=== PATIENT | female | born 1960 | race Caucasian/White ===

== ENCOUNTER 2019-06-17 20:08 | Inpatient (IN) | payer BC ==
--- NOTE | 2019-06-17 20:30 | ED ---
Dizziness - HPI Summary HPI Summary: This pt is a 58 y/o female presenting to [facility] c/o unsteady gait today. Pt reports she was doing her walk at work around 1900 today when she felt "off" and "weird." She describes feeling off balanced and like leaning towards the left. Denies room spinning sensation. Pt also states she felt like her legs might give out and if she wasn't careful she felt like she would fall over. Pt reports she has never felt this in the past. Denies any associated pain. Denies vomiting, diarrhea, visual changes, difficulty speaking, ear pain. Although, she notes she always has ringing in her ears, unchanged today. Denies any recent cold symptoms. Denies SOB. Pt states she had a stressful week. Pt is on tramadol for arthritis. Denies hx of HTN and states her blood pressure is around 120/70 during her visits to her PCP's. NKDA. Denies tobacco or drug use. She reports she seldom drinks alcohol. Medications reviewed. Allergies noted. - History Of Current Complaint Chief Complaint: EDDizziness Stated Complaint: DIZZY PER PT Time Seen by Provider: 06/17/19 20:23 Hx Obtained From: Patient Onset/Duration: Still Present Timing: Constant Severity Currently: Moderate Character: Unable To Describe Aggravating Factor(s): Nothing Alleviating Factor(s): Nothing Associated Signs And Symptoms: Positive: Unsteady Gait. Negative: Vomiting, Diarrhea, SOB, Visual Changes, Fever, Inability to Walk, Slurred Speech - Allergies/Home Medications Allergies/Adverse Reactions: Allergies Allergy/AdvReac Type Severity Reaction Status Date / Time No Known Allergies Allergy Verified 06/17/19 20:12 Home Medications: Home Medications Albuterol inh POWDER (NF) [Proair Respiclick] 1 - 2 puff INH Q4HR PRN 06/17/19 [ History Confirmed 06/17/19] Meloxicam(NF) [Mobic(NF)] 7.5 mg PO BID WITH MEALS 06/17/19 [History Confirmed 06/17/19] traMADol TAB* [Ultram*] 50 mg PO 1200 PRN 06/17/19 [History Confirmed 06/17/19] traMADol TAB* [Ultram*] 100 mg PO QAM 06/17/19 [History Confirmed 06/17/19] PMH/Surg Hx/FS Hx/Imm Hx Respiratory History: Reports: Hx Asthma - RESCUE INHALER - NOT USED IN 2 YEARS Musculoskeletal History: Reports: Hx Arthritis - BILATERAL HIPS, KNEES,, Hx Tendonitis - RIGHT ELBOW Sensory History: Reports: Hx Contacts or Glasses - GLASSES Denies: Hx Hearing Aid Opthamlomology History: Reports: Hx Contacts or Glasses - GLASSES - Cancer History Hx Chemotherapy: No Hx Radiation Therapy: No - Surgical History Surgical History: Yes Surgery Procedure, Year, and Place: 1983 AND 1986 CSECTION X 2, [place], [place], & [place], [facility]. 1995 HYSTERECTOMY (UTERUS AND CERVIX), [place], [place]. 2014 LAPAROSCOPIC CHOLECYSTECTOMY, [facility] Hx Anesthesia Reactions: No Infectious Disease History: No Infectious Disease History: Denies: Traveled Outside the [place] in Last 30 Days - Family History Family History: Prostate CA. Lupus. - Social History Alcohol Use: Rare Substance Use Type: Reports: None Smoking Status (MU): Never Smoked Tobacco Review of Systems Negative: Fever Negative: Other - NEGATIVE: visual changes Negative: Ear Ache, Other - NEGATIVE: recent cold symptoms Negative: Shortness Of Breath Negative: Vomiting, Diarrhea Neurological: Other - NEGATIVE: difficulty with speech. POSITIVE: unsteady gait , off balanced, leaning to the left. All Other Systems Reviewed And Are Negative: Yes Physical Exam - Summary Physical Exam Summary: Constitutional: Well-developed, Well-nourished, Alert. (-) Distressed Skin: Warm, Dry HENT: Normocephalic; Atraumatic Eyes: Conjunctiva normal Neck: Musculoskeletal ROM normal neck. (-) JVD, (-) Stridor, (-) Tracheal deviation Cardio: Rhythm regular, rate normal, Heart sounds normal; Intact distal pulses. Radial pulses are 2+ and symmetric. (-) Murmur Pulmonary/Chest wall: Effort normal. (-) Respiratory distress, (-) Wheezes, (-) Rales Abd: Soft. (-) Tenderness, (-) Distension, (-) Guarding, (-) Rebound Musculoskeletal: (-) Edema Lymph: (-) Cervical adenopathy Neuro: Alert, Oriented x3, Strength normal, Cranial nerves II-XII are grossly intact. (-) Dysmetria, (-) Nystagmus, (-) Ataxia by finger to nose testing, (-) Sensory deficit. Psych: Mood and affect Normal Triage Information Reviewed: Yes Vital Signs On Initial Exam: Initial Vitals Temp Pulse Resp BP Pulse Ox 97.4 F 84 18 130/87 100 06/17/19 20:10 06/17/19 20:10 06/17/19 20:10 06/17/19 20:10 06/17/19 20:10 Vital Signs Reviewed: Yes - Jace Coma Scale Best Eye Response: 4 - Spontaneous Best Motor Response: 6 - Obeys Commands Best Verbal Response: 5 - Oriented Coma Scale Total: 15 Procedures - Sedation Patient Received Moderate/Deep Sedation with Procedure: No Diagnostics - Vital Signs Vital Signs Temp Pulse Resp BP Pulse Ox 06/17/19 20:10 97.4 F 84 18 130/87 100 - Laboratory Result Diagrams: 06/17/19 20:38 06/17/19 20:38 Lab Statement: Any lab studies that have been ordered have been reviewed, and results considered in the medical decision making process. - Radiology Chest XR Radiology Interpretation Completed By: ED Physician Summary of Radiographic Findings: No acute process. - CT Brain CT CT Interpretation Completed By: Radiologist Summary of CT Findings: IMPRESSION: No acute intracranial abnormality. Dr. Gibbs has reviewed this report. Head CTA CT Interpretation Completed By: Radiologist Summary of CT Findings: IMPRESSION: No hemodynamically significant or large vessel occlusion. Dr. Gibbs has reviewed this report. Neck CTA CT Interpretation Completed By: Radiologist Summary of CT Findings: IMPRESSION: No stenosis (0%) or dissection. Dr. Gibbs has reviewed this report. - EKG 20:13 Cardiac Rate: NL - at 68 bpm EKG Rhythm: Sinus Rhythm EKG Comparison: No Significant Change - Unchanged from EKG on 11/25/13. Summary of EKG Findings: EKG at 20:13 shows normal sinus rhythm at rate of [address] depressions in leads V2-V4. T wave inversion in lead V2. Unchanged from EKG on 11/25/13. National Institutes Of Health - NIH Scale Level of Consciousness: Alert/Keenly Responsive Ask Patient the Month and His/Her Age: Both Correct Ask Pt to Open/Close Eyes and Professor Of German/Release Non-Paretic Hand: Both Correctly Best Gaze (Only Horizontal Eye Movement): Normal Visual Field Testing: No Visual Loss Facial Paresis-Pt to Smile & Close Eyes or Grimace Symmetry: Normal/Symmetrical Motor Function - Right Arm: No Drift-Holds 10 Seconds Motor Function - Left Arm: No Drift-Holds 10 Seconds Motor Function - Right Leg: No Drift-Holds 10 Seconds Motor Function - Left Leg: No Drift-Holds 10 Seconds Limb Ataxia-Must be out of Proportion to Weakness Present: Absent Sensory (Use Pinprick to Test Arms/Legs/Trunk/Face): Normal Best Language (Describe Picture, Name Items): No Aphasia Dysarthria (Read Several Words): Normal Extinction and Inattention: No Abnormality Total Score: 0 Re-Evaluation - Re-Evaluation First Eval Re-Evaluation Time: 20:58 Change: Improved Comment: Pt's symptoms are near gone now. Dizzy Course/Dx - Course Course Of Treatment: Patient is here with vertigo that started at 7 PM. Patient had an NIH stroke scale 0 potter arrival but did have difficulty ambulating with a gait ataxia. A pam mas was called and patient was taken emergently to the CT scanner where a CT brain and CTA head/neck was performed. Patient had no evidence of intracranial hemorrhage. Patient had a negative CTA for any clot. By the time patient returned from CT scanner, patient was back to her baseline. Neurology at [facility] was called and the recommended admission for TIA. Code palma called at 20:33. Brain CT ordered at 20:33. Pt taken to CT at 20:34. Radiologist reports brain CT results at 20:53 . - Diagnoses Provider Diagnoses: TIA (transient ischemic attack) During the Visit The Following Alert/Code Occurred: Code Dong - at 20:33 - Provider Notifications Discussed Care Of Patient With: Dr. Godinez Time Discussed With Above Provider: 21:01 Instructed by Provider To: Other - Dr. Godinez, neurologist from [facility], says to admit patient overnight for TIA work up and if there is basilar artery clot recommend TPA even if patient is asymptomatic. [21:19] Discussed with Dr. Wong, hospitalist, who accepted the pt for admission. - Critical Care Time Critical Care Time: 30-74 min - 35 minutes Discharge ED - Sign-Out/Discharge Documenting (check all that apply): Patient Departure - Admit to [facility] - Discharge Plan Condition: Stable Disposition: ADMITTED TO [facility] Referrals: Sujata Dumont MD [Primary Care Provider] - - Billing Disposition and Condition Condition: STABLE Disposition: Admitted to [facility] - Attestation Statements Document Initiated by Pavithraibandree: Yes Documenting Scribe: Ifrah Jerry Provider For Whom Scribandree is Documenting (Include Credential): Vitor Gibbs MD Scribe Attestation: IIfrah, scribed for Vitor Gibbs MD on 06/17/19 at 2133. Scribe Documentation Reviewed: Yes Provider Attestation: The documentation as recorded by the Ifrah hall accurately reflects the service I personally performed and the decisions made by , Vitor Gibbs MD Status of Scribe Document: Viewed
[2019-06-17] MEDS ORDERED: NS 0.9% 1000 ML** 1,000 ML IV ONE (20:33)
[2019-06-17] MEDS ORDERED: Iodixanol* (CONTRAST) 320 MG/ML 100 ML SDV IV ONE (20:50)
[2019-06-17 20:51] LABS: ABS Basophils 0.1 10^3/ul (0-0.2); ABS Eosinophils 0.1 10^3/ul (0-0.6); ABS Lymphocytes 2.5 10^3/ul (1.0-4.8); ABS Monocytes 0.5 10^3/ul (0-0.8); ABS Neutrophils 4.8 10^3/ul (1.5-7.7); Eosinophil % 1.3 %; Hematocrit 37 % (35-47); Hemoglobin 12.7 g/dL (12.0-16.0); Lymphocyte % 31.3 %; Mean Corpuscular HGB Conc 34 g/dL (31-36); Mean Corpuscular Hemoglobin 31 pg (27-31); Mean Corpuscular Volume 91 fL (80-97); Mean Platelet Volume 8.3 fL (7.4-10.4); Platelet Count 403 10^3/uL (150-450); Red Blood Count 4.07 10^6 /uL (3.70-4.87); Red Cell Distribution Width 13 % (10-15)
[2019-06-17 21:08] LABS: Activated Partial Thrombo Time 33.8 seconds (26.0-38.0); INR 1.06 (0.82-1.09)
[2019-06-17 21:17] LABS: Albumin 4.4 g/dL (3.2-5.2); Albumin/Globulin Ratio 1.7 (1-3); BUN/Creatinine Ratio 21.2 (8-20); Calcium 9.5 mg/dL (8.6-10.3); EGFR African American 57.3 (>60); EGFR Non-African American 47.4 (>60); Globulin 2.6 g/dL (2-4); HDL Cholesterol 41.6 mg/dL; Potassium 3.5 mmol/L (3.5-5.0); Total Bilirubin 0.2 mg/dL (0.2-1.0); Troponin I 0.01 ng/mL (<0.04)
--- OUTSIDE RECORDS SUMMARY | 2019-06-17 21:33 | XMS REPORT | Continuity of Care Document ---
:1960 External Reference #:[id number] Author Name Emmanuel Merritt N.P. 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 Onset: 2011 Arthralgia of the lower leg Sujata Dumont M.D. Onset: 02/10/2012 Asthma Leah Page FNP Onset: 05/16/2014 Low back pain Sujata Dumont M.D. Onset: 02/10/2012 Osteoarthritis Sujata Dumont M.D. Onset: 02/10/2012 Non-organic sleep disorder Sujata Dumont M.D. Onset: 02/10/2012 Anxiety state Sujata Dumont M.D. Onset: 02/10/2012 Malaise and fatigue Sujata Dumont M.D. Onset: 07/23/2012 Allergic rhinitis Sujata Dumont M.D. Onset: 07/23/2012 Mixed hyperlipidemia Sujata Dumont M.D. Onset: 11/16/2012 Myopia Sujata Dumont M.D. Onset: 12/16/2013 Persistent hematuria Leah Page FNP Onset: 03/07/2014 Non-alcoholic fatty liver Leah Page FNP Onset: 03/07/2014 Atopic dermatitis Sujata Dumont M.D. Onset: 11/01/2014 Asthma without status asthmaticus Sujata Dumont M.D. 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 Tablets Meloxicam take one tablet 60tabs M15.9 Sujata Dumont, 05/28/2019 7.5mg Tablets by mouth twice a M.D. day-take with food Proair Respiclick inhale 2 puffs by 1units J45.909 Sujata Dumont, 2018 mouth every 4 M.D. 108(90Base) mcg/Act hours if needed Aerosol for shortness of breath or wheezing Vitamin D3 Maximum tab two by mouth OTC E55.9 Sujata Dumont, 11/01/2015 Strength every day M.D. 2000Unit Capsules Tramadol HCL 1 tab by mouth 90tabs M25.562 Sujata Dumont, 12/06/2011 50mg three times a day M.D. Tablets as needed for pain M15.9 M54.5 History Medications Cephalexin 1 tabs by mouth 30tabs L03.211 Sujata Dumont, 02/18/2019 - 500mg three times a M.D. 02/21/2019 Tablets day Medications Administered in Office Medication SIG Qnty Indications Ordering Provider Date Solu-Medrol 125MG Sujata Dumont M.D. 02/04/2014 Injection Rocephin 250 Sujata Dumont M.D. 02/04/2014 Injection Immunizations CPT Code Status Date Vaccine Lot # [id number] Refused 06/15/2014 Flu Vaccine Vital Signs Date Vital Result Comment 05/28/2019 9:06am BP Systolic 125 mmHg BP Diastolic 62 mmHg Height 56 inches 4'8" Weight 151.00 lb BMI (Body Mass Index) 33.8 kg/m2 Heart Rate 61 /min Respiratory Rate 16 /min 04/28/2019 8:57am BP Systolic 118 mmHg BP Diastolic 62 mmHg Height 56 inches 4'8" Weight 148.00 lb BMI (Body Mass Index) 33.2 kg/m2 Heart Rate 69 /min Respiratory Rate 16 /min Results Test Date Facility Test Result H/L Range Note CBC With Diff 01/21/2019 [facility] WBC 4.8 10*3/uL (4.1-11.0) [address] (607)- - RBC 4.14 10*6/uL (4.00-5.40) HGB 13.1 g/dL (12.0-16.0) HCT 38.3 % (36.0-47.0) MCV 92.6 fL (80.0-95.0) MCH 31.6 pg (27.0-32.0) MCHC 34.2 g/dL (32.0-36.0) RDW 13.1 % (10.5-14.5) PLT 367 10*3/uL (150-450) MPV 8.8 fL (7.1-10.7) Neut % 50.6 % (35.0-75.0) Lymph % 37.4 % (16.0-52.0) [place] % 9.0 % High (0.0-8.0) Eos % 2.6 % (0.0-5.0) Baso % 0.4 % (0.0-4.0) Neut # 2.4 10*3/uL (1.8-7.7) Lymph # 1.8 10*3/uL (1.2-4.8) [place] # 0.4 10*3/uL (0.0-0.8) Eos # 0.1 10*3/uL (0.0-0.5) Baso # 0.0 10*3/uL (0.0-0.2) CMP 01/21/2019 [facility] Sodium 142 mmol/L (136-145) [address] (607)- - Potassium 4.6 mmol/L (3.6-5.2) Chloride 109 mmol/L High (100-108) Co2 27 mmol/L (22-31) Anion Gap 6 mmol/L Low (7-16) Urea Nitrogen 15 mg/dL (7-24) Creatinine 0.79 mg/dL (0.60-1.00) BUN/Creat Ratio 19.0 RATIO (10.0-20.0) Glucose 90 mg/dL (70-99) Calcium 8.4 mg/dL (8.4-10.2) Total Protein 7.0 g/dL (6.4-8.2) Albumin 4.0 g/dL (3.5-4.6) Globulin 3.0 g/dL (2.7-4.3) Alb/Glob Ratio 1.3 RATIO Alkaline Phosphatase 57 U/L (45-117) Bilirubin,Total 0.3 mg/dL (0.0-1.0) Ast (Sgot) 14 U/L (11-39) Alt (SGPT) 16 U/L (12-78) GFR >60 ml/min/1.73m2 (>59) GFR ( Amer) >60 ml/min/1.73m2 (>59) GFR Interpretation <SEE NOTE> 1 Lipid Extended Panel 01/21/2019 [facility] Appearance CLEAR (Clear) [address] (578)- - Cholesterol @ 192 mg/dL (0-200) Triglyceride @ 103 mg/dL (30-200) HDL Cholesterol @ 47 mg/dL (>40) 2 Chol/HDL Ratio 4.1 RATIO 3 Direct LDL @ 125 mg/dL (<130) 4 VLDL (Calc) 20 mg/dL (0-30) Laboratory 01/21/2019 [facility] TSH,Ultrasensitive @ 2.960 (0.360- 4.170) test finding [address] mIU/L (601)- - Hemoglobin A1c 01/21/2019 [facility] Hemoglobin A1c @ 5.4 % (4.0-6.0) 5 [address] (998)- - Est Average Glucose 108 mg/dL Laboratory test 01/21/2019 [facility] 25 Hydroxy Vit 67 ng/mL (31-100 ) 6 finding [address] D @ (828)- - 1 NORMAL KIDNEY FUNCTION OR MILD DISEASE - GFR >OR= 60 CHRONIC KIDNEY DISEASE - GFR 15 - 59 RENAL FAILURE - GFR <15 Est. GFR calculation based on the MDRD study equation, which assumes a steady state for creatinine. Est. GFR should not be used for medication dosing. 2 PER NCEP ATP III GUIDELINES: RESULTS LOWER THAN 40 MG/DL ARE SUGGESTIVE OF INCREASED RISK FOR CORONARY ARTERY DISEASE. RESULTS > OR = TO 60 MG/DL ARE CONSIDERED A NEGATIVE RISK FACTOR. 3 INTERPRETATION OF CHOL-HDL RATIO CHD RISK FEMALE MALE VERY HIGH >8.3 >14.3 HIGH 5.6- 8.3 6.7- 14.3 AVERAGE 3.7- 5.6 4.0- 6.7 BELOW AVERAGE 2.5- 3.7 2.7- 4.0 PROTECTED <2.5 <2.7 4 PER NCEP ATP III GUIDELINES: OPTIMAL < 100 NEAR OPTIMAL 100 - 129 BORDERLINE HIGH 130 - 159 HIGH 160 - 189 VERY HIGH > 189 5 Performed using Siemens [place] immunoassay. Care must be taken when interpreting HbA1c results in patients with a hemoglobin variant or decreased erythrocyte lifespan. Values 5.7 - 6.4% suggest prediabetes. Values >=6.5% are diagnostic for diabetes. REFERENCE: DIABETES CARE 2018: 41(S13-S27). 6 A REVIEW OF THE LITERATURE SUGGESTS THE FOLLOWING RANGES FOR THE CLASSIFICATION OF 25-OH VITAMIN D STATUS: VITAMIN D STATUS 25-OH VITAMIN D DEFICIENCY <20 NG/ML INSUFFICIENCY 20-30 NG/ML SUFFICIENCY 31 - 100 NG/ML TOXICITY > 100 NG/ML A PEDIATRIC REFERENCE RANGE HAS NOT BEEN ESTABLISHED USING THIS METHOD. Procedures Date Code Description Status 08/25/2014 [id number] Mammogram Completed Medical Devices Description No Information Available Encounters Type Date Location Provider Dx Diagnosis Office Visit 05/28/2019 [facility] Emmanuel Merritt, E78.2 Mixed hyperlipidemia 9:30a N.P. I10 Essential (primary) hypertension M15.9 Polyosteoarthritis, unspecified R73.01 Impaired fasting glucose E55.9 Vitamin D deficiency, unspecified G56.00 Carpal tunnel syndrome, unspecified upper limb G47.00 Insomnia, unspecified F41.9 Anxiety disorder, unspecified M25.521 Pain in right elbow M25.562 Pain in left knee M79.606 Pain in leg, unspecified A69.20 Lyme disease, unspecified M25.542 Pain in joints of left hand R53.83 Other fatigue R51 Headache M25.571 Pain in right ankle and joints of right foot Z28.21 Immunization not carried out because of patient refusal J45.909 Unspecified asthma, uncomplicated M25.559 Pain in unspecified hip Office Visit 04/28/2019 9:15a [facility] Emmanuel Merritt E78.2 Mixed hyperlipidemia N.P. I10 Essential (primary) hypertension M15.9 Polyosteoarthritis, unspecified R73.01 Impaired fasting glucose E55.9 Vitamin D deficiency, unspecified G56.00 Carpal tunnel syndrome, unspecified upper limb G47.00 Insomnia, unspecified F41.9 Anxiety disorder, unspecified M25.521 Pain in right elbow M25.562 Pain in left knee M79.606 Pain in leg, unspecified A69.20 Lyme disease, unspecified M25.542 Pain in joints of left hand R53.83 Other fatigue R51 Headache M25.571 Pain in right ankle and joints of right foot Office Visit 03/23/2019 9:30a [facility] Sujata Dumont E78.2 Mixed hyperlipidemia Leonardo Witt I10 Essential (primary) hypertension M15.9 Polyosteoarthritis, unspecified R73.01 Impaired fasting glucose E55.9 Vitamin D deficiency, unspecified G56.00 Carpal tunnel syndrome, unspecified upper limb G47.00 Insomnia, unspecified F41.9 Anxiety disorder, unspecified M25.521 Pain in right elbow M25.562 Pain in left knee M79.606 Pain in leg, unspecified A69.20 Lyme disease, unspecified M25.542 Pain in joints of left hand R53.83 Other fatigue R51 Headache M25.571 Pain in right ankle and joints of right foot H92.02 Otalgia, left ear L03.211 Cellulitis of face Office Visit 02/18/2019 9:30a [facility] Sujata Dumont E78.2 Mixed hyperlipidemia Leonardo Witt I10 Essential (primary) hypertension M15.9 Polyosteoarthritis, unspecified R73.01 Impaired fasting glucose E55.9 Vitamin D deficiency, unspecified G56.00 Carpal tunnel syndrome, unspecified upper limb G47.00 Insomnia, unspecified F41.9 Anxiety disorder, unspecified M25.521 Pain in right elbow M25.562 Pain in left knee M79.606 Pain in leg, unspecified A69.20 Lyme disease, unspecified M25.542 Pain in joints of left hand R53.83 Other fatigue R51 Headache M25.571 Pain in right ankle and joints of right foot H92.02 Otalgia, left ear L03.211 Cellulitis of face Office Visit 01/21/2019 8:45a [facility] Sujata Dumont E78.2 Mixed hyperlipidemia Leonardo Witt I10 Essential (primary) hypertension M15.9 Polyosteoarthritis, unspecified R73.01 Impaired fasting glucose E55.9 Vitamin D deficiency, unspecified G56.00 Carpal tunnel syndrome, unspecified upper limb G47.00 Insomnia, unspecified F41.9 Anxiety disorder, unspecified M25.521 Pain in right elbow M25.562 Pain in left knee M79.606 Pain in leg, unspecified A69.20 Lyme disease, unspecified M25.542 Pain in joints of left hand R53.83 Other fatigue R51 Headache M25.571 Pain in right ankle and joints of right foot H92.02 Otalgia, left ear Office Visit 12/22/2018 9:15a [facility] Sujata Dumont E78.2 Mixed hyperlipidemia Leonardo Witt I10 Essential (primary) hypertension M15.9 Polyosteoarthritis, unspecified R73.01 Impaired fasting glucose E55.9 Vitamin D deficiency, unspecified G56.00 Carpal tunnel syndrome, unspecified upper limb G47.00 Insomnia, unspecified F41.9 Anxiety disorder, unspecified M25.521 Pain in right elbow M25.562 Pain in left knee M79.606 Pain in leg, unspecified A69.20 Lyme disease, unspecified M25.542 Pain in joints of left hand R53.83 Other fatigue R51 Headache M25.571 Pain in right ankle and joints of right foot H92.02 Otalgia, left ear Assessments Date Code Description Provider 05/28/2019 E78.2 Mixed hyperlipidemia Emmanuel Merritt, N.P. 05/28/2019 I10 Essential (primary) hypertension Emmanuel Merritt, N.P. 05/28/2019 M15.9 Polyosteoarthritis, unspecified Emmanuel Merritt, N.P. 05/28/2019 R73.01 Impaired fasting glucose Emmanuel Merritt N.P. 05/28/2019 E55.9 Vitamin D deficiency, unspecified Emmanuel Merritt N.P. 05/28/2019 G56.00 Carpal tunnel syndrome, unspecified upper Emmanuel Merritt N.P. limb 05/28/2019 G47.00 Insomnia, unspecified Emmanuel Merritt N.P. 05/28/2019 F41.9 Anxiety disorder, unspecified Emmanuel Merritt N.P. 05/28/2019 M25.521 Pain in right elbow Emmanuel Merritt N.P. 05/28/2019 M25.562 Pain in left knee Emmanuel Merritt N.P. 05/28/2019 M79.606 Pain in leg, unspecified Emmanuel Merritt, N.P. 05/28/2019 A69.20 Lyme disease, unspecified Emmanuel Merritt N.P. 05/28/2019 M25.542 Pain in joints of left hand Emmanuel Merritt N.P. 05/28/2019 R53.83 Other fatigue Emmanuel Merritt N.P. 05/28/2019 R51 Headache Emmanuel Merritt N.P. 05/28/2019 M25.571 Pain in right ankle and joints of right foot Emmanuel Merritt N.P. 05/28/2019 Z28.21 Immunization not carried out because of Emmanuel Merritt, N.PKan patient refusal 05/28/2019 J45.909 Unspecified asthma, uncomplicated Emmanuel Merritt N.P. 05/28/2019 M25.559 Pain in unspecified hip Emmanuel Merritt N.P. 04/28/2019 E78.2 Mixed hyperlipidemia Emmanuel Merritt, N.P. 04/28/2019 I10 Essential (primary) hypertension Emmanuel Merritt, N.P. 04/28/2019 M15.9 Polyosteoarthritis, unspecified Emmanuel Merritt, N.P. 04/28/2019 R73.01 Impaired fasting glucose Emmanuel Merritt, N.P. 04/28/2019 E55.9 Vitamin D deficiency, unspecified Emmanuel Merritt, N.P. 04/28/2019 G56.00 Carpal tunnel syndrome, unspecified upper Emmanuel Merritt, N.P. limb 04/28/2019 G47.00 Insomnia, unspecified Emmanuel Merritt, N.P. 04/28/2019 F41.9 Anxiety disorder, unspecified Emmanuel Merritt, N.P. 04/28/2019 M25.521 Pain in right elbow Emmanuel Merritt, N.P. 04/28/2019 M25.562 Pain in left knee Emmanuel Merritt, N.P. 04/28/2019 M79.606 Pain in leg, unspecified Emmanuel Merritt, N.P. 04/28/2019 A69.20 Lyme disease, unspecified Emmanuel Merritt, N.P. 04/28/2019 M25.542 Pain in joints of left hand Emmanuel Merritt, N.P. 04/28/2019 R53.83 Other fatigue Emmanuel Merritt, N.P. 04/28/2019 R51 Headache Emmanuel Merritt, N.P. 04/28/2019 M25.571 Pain in right ankle and joints of right foot Emmanuel Merritt, N.P. 03/23/2019 E78.2 Mixed hyperlipidemia Sujata Dumont M.D. 03/23/2019 I10 Essential (primary) hypertension Sujata Dumont M.D. 03/23/2019 M15.9 Polyosteoarthritis, unspecified Sujata Dumont M.D. 03/23/2019 R73.01 Impaired fasting glucose Sujata Dumont M.D. 03/23/2019 E55.9 Vitamin D deficiency, unspecSujata Torres M.D. 03/23/2019 G56.00 Carpal tunnel syndrome, unspecified upper Sujata Dumont M.D. limb 03/23/2019 G47.00 Insomnia, unspecified TimSujata westfall M.D. 03/23/2019 F41.9 Anxiety disorder, unspecified Sujata Dumont M.D. 03/23/2019 M25.521 Pain in right elbow Sujata Dumont M.D. 03/23/2019 M25.562 Pain in left knee Sujata Dumont M.D. 03/23/2019 M79.606 Pain in leg, unspecified Sujata Dumont M.D. 03/23/2019 A69.20 Lyme disease, unspecified Sujata Dumont M.D. 03/23/2019 M25.542 Pain in joints of left hand Sujata Dumont M.D. 03/23/2019 R53.83 Other fatigue Sujata Dumont M.D. 03/23/2019 R51 Headache Sujata Dumont M.D. 03/23/2019 M25.571 Pain in right ankle and joints of right foot Sujata Dumont M.D. 03/23/2019 H92.02 Otalgia, left ear Sujata Dumont M.D. 03/23/2019 L03.211 Cellulitis of face Sujata Dumont M.D. 02/18/2019 E78.2 Mixed hyperlipidemia Sujata Dumont M.D. 02/18/2019 I10 Essential (primary) hypertension Sujata Dumont M.D. 02/18/2019 M15.9 Polyosteoarthritis, unspecified Sujata Dumont M.D. 02/18/2019 R73.01 Impaired fasting glucose Sujata Dumont M.D. 02/18/2019 E55.9 Vitamin D deficiency, unspecified Sujata Dumont M.D. 02/18/2019 G56.00 Carpal tunnel syndrome, unspecified upper Sujata Dumont M.D. limb 02/18/2019 G47.00 Insomnia, unspecified Sujata Dumont M.D. 02/18/2019 F41.9 Anxiety disorder, unspecified Sujata Dumont M.D. 02/18/2019 M25.521 Pain in right elbow Sujata Dumont M.D. 02/18/2019 M25.562 Pain in left knee Sujata Dumont M.D. 02/18/2019 M79.606 Pain in leg, unspecified Sujata Dumont M.D. 02/18/2019 A69.20 Lyme disease, unspecified Sujata Dumont M.D. 02/18/2019 M25.542 Pain in joints of left hand Sujata Dumont M.D. 02/18/2019 R53.83 Other fatigue Sujata Dumont M.D. 02/18/2019 R51 Headache Sujata Dumont M.D. 02/18/2019 M25.571 Pain in right ankle and joints of right foot Sujata Dumont M.D. 02/18/2019 H92.02 Otalgia, left ear Sujata Dumont M.D. 02/18/2019 L03.211 Cellulitis of face Sujata Dumont M.D. 01/21/2019 E78.2 Mixed hyperlipidemia Sujata Dumont M.D. 01/21/2019 I10 Essential (primary) hypertension Sujata Dumont M.D. 01/21/2019 M15.9 Polyosteoarthritis, unspecified Sujata Dumont M.D. 01/21/2019 R73.01 Impaired fasting glucose Sujata Dumont M.D. 01/21/2019 E55.9 Vitamin D deficiency, unspecified Sujata Dumont M.D. 01/21/2019 G56.00 Carpal tunnel syndrome, unspecified upper Sujata Dumont M.D. limb 01/21/2019 G47.00 Insomnia, unspecified Sujata Dumont M.D. 01/21/2019 F41.9 Anxiety disorder, unspecified Sujata Dumont M.D. 01/21/2019 M25.521 Pain in right elbow Sujata Dumont M.D. 01/21/2019 M25.562 Pain in left knee Sujata Dumont M.D. 01/21/2019 M79.606 Pain in leg, unspecified Sujata Dumont M.D. 01/21/2019 A69.20 Lyme disease, unspecified Sujata Dumont M.D. 01/21/2019 M25.542 Pain in joints of left hand Sujata Dumont M.D. 01/21/2019 R53.83 Other fatigue Sujata Dumont M.D. 01/21/2019 R51 Headache Sujata Dumont M.D. 01/21/2019 M25.571 Pain in right ankle and joints of right foot Sujata Dumont M.D. 01/21/2019 H92.02 Otalgia, left ear Sujata Dumont M.D. 12/22/2018 E78.2 Mixed hyperlipidemia Sujata Dumont M.D. 12/22/2018 I10 Essential (primary) hypertension Sujata Dumont M.D. 12/22/2018 M15.9 Polyosteoarthritis, unspecified Sujata Dumont M.D. 12/22/2018 R73.01 Impaired fasting glucose Sujata Dumont M.D. 12/22/2018 E55.9 Vitamin D deficiency, unspecified uSjata Dumont M.D. 12/22/2018 G56.00 Carpal tunnel syndrome, unspecified upper Sujata Dumont M.D. limb 12/22/2018 G47.00 Insomnia, unspecified Sujata Dumont M.D. 12/22/2018 F41.9 Anxiety disorder, unspecified TimSujata westfall M.D. 12/22/2018 M25.521 Pain in right elbow TimSujata M.D. 12/22/2018 M25.562 Pain in left knee TimSujata westfall M.D. 12/22/2018 M79.606 Pain in leg, unspecified Sujata Dumont M.D. 12/22/2018 A69.20 Lyme disease, unspecified TimSujata westfall M.D. 12/22/2018 M25.542 Pain in joints of left hand Sujata Dumont M.D. 12/22/2018 R53.83 Other fatigue Sujata Dumont M.D. 12/22/2018 R51 Headache Sujata Dumont M.D. 12/22/2018 M25.571 Pain in right ankle and joints of right foot Sujata Dumont M.D. 12/22/2018 H92.02 Otalgia, left ear Sujata Dumont M.D. 12/21/2018 E78.2 Mixed hyperlipidemia Emmanuel Merritt, N.P. 12/21/2018 I10 Essential (primary) hypertension Emmanuel Merritt N.P. 12/21/2018 M15.9 Polyosteoarthritis, unspecified Emmanuel Merritt, N.P. 12/21/2018 R73.01 Impaired fasting glucose Emmanuel Merritt N.P. 12/21/2018 E55.9 Vitamin D deficiency, unspecified Emmanuel Merritt, N.P. 12/21/2018 G56.00 Carpal tunnel syndrome, unspecified upper Emmanuel Merritt, N.P. limb 12/21/2018 G47.00 Insomnia, unspecified Emmanuel Merritt N.P. 12/21/2018 F41.9 Anxiety disorder, unspecified Emmanuel Merritt N.P. 12/21/2018 M25.521 Pain in right elbow Emmanuel Merritt N.P. 12/21/2018 M25.562 Pain in left knee Emmanuel Merritt N.P. 12/21/2018 M79.606 Pain in leg, unspecified Emmanuel Merritt N.P. 12/21/2018 A69.20 Lyme disease, unspecified Emmanuel Merritt N.P. 12/21/2018 M25.542 Pain in joints of left hand Emmanuel Merritt N.P. 12/21/2018 R53.83 Other fatigue Emmanuel Merritt N.P. 12/21/2018 R51 Headache Abner Argueta.P. 12/21/2018 M25.571 Pain in right ankle and joints of right foot Abner Argueta.PKan 12/21/2018 H92.02 Otalgia, left ear Emmanuel Merritt N.P. Plan of Treatment Future Appointment(s):06/28/2019 8:30 am - Emmanuel Merritt N.P. at [facility] Functional Status Functional Condition Comment Date Status Glasses Active Bifocal glasses Active Mental Status Description No Information Available Referrals Description No Information Available
--- OUTSIDE RECORDS SUMMARY | 2019-06-17 21:33 | XMS REPORT | Continuity of Care Document ---
:1960 External Reference #:[id number] Author Name Emmanuel Merritt N.P. 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 2000Unit Capsules Tramadol HCL 1 tab by mouth 90tabs M25.562 Sujata Dumont, 12/06/2011 50mg three times a M.D. Tablets day as needed for pain M15.9 M54.5 History Medications Cephalexin 1 tabs by mouth 30tabs L03.211 Sujata Dumont, 02/18/2019 - 500mg three times a M.D. 02/21/2019 Tablets day Medications Administered in Office Medication SIG Qnty Indications Ordering Provider Date Solu-Medrol 125MG Sujata Dumont M.D. 02/04/2014 Injection Rocephin 250 Sujata Dumont M.D. 02/04/2014 Injection Immunizations CPT Code Status Date Vaccine Lot # [id number] Refused 06/15/2014 Flu Vaccine Vital Signs Date Vital Result Comment 04/28/2019 8:57am BP Systolic 118 mmHg BP Diastolic 62 mmHg Height 56 inches 4'8" Weight 148.00 lb BMI (Body Mass Index) 33.2 kg/m2 Heart Rate 69 /min Respiratory Rate 16 /min 03/23/2019 8:51am BP Systolic 118 mmHg BP Diastolic 64 mmHg Height 56 inches 4'8" Weight 150.00 lb BMI (Body Mass Index) 33.6 kg/m2 Heart Rate 61 /min Respiratory Rate 16 /min Results Test Date Facility Test Result H/L Range Note CBC With Diff 01/21/2019 [facility] WBC 4.8 10*3/uL (4.1-11.0) Lucinda SMI[facility] (607)- - RBC 4.14 10*6/uL (4.00-5.40) HGB 13.1 g/dL (12.0-16.0) HCT 38.3 % (36.0-47.0) MCV 92.6 fL (80.0-95.0) MCH 31.6 pg (27.0-32.0) MCHC 34.2 g/dL (32.0-36.0) RDW 13.1 % (10.5-14.5) PLT 367 10*3/uL (150-450) MPV 8.8 fL (7.1-10.7) Neut % 50.6 % (35.0-75.0) Lymph % 37.4 % (16.0-52.0) Crane % 9.0 % High (0.0-8.0) Eos % 2.6 % (0.0-5.0) Baso % 0.4 % (0.0-4.0) Neut # 2.4 10*3/uL (1.8-7.7) Lymph # 1.8 10*3/uL (1.2-4.8) Crane # 0.4 10*3/uL (0.0-0.8) Eos # 0.1 10*3/uL (0.0-0.5) Baso # 0.0 10*3/uL (0.0-0.2) CMP 01/21/2019 [facility] Sodium 142 mmol/L (136-145) [facility] (607)- - Potassium 4.6 mmol/L (3.6-5.2) Chloride [...] NOTE> 1 Lipid Extended Panel 01/21/2019 [facility] Appearance CLEAR (Clear) [address]JIT (607)- - Cholesterol @ 192 mg/dL (0-200) Triglyceride @ 103 mg/dL (30-200) HDL Cholesterol @ 47 mg/dL (>40) 2 Chol/HDL Ratio 4.1 RATIO 3 Direct LDL @ 125 mg/dL (<130) 4 VLDL (Calc) 20 mg/dL (0-30) Laboratory 01/21/2019 [facility] TSH,Ultrasensitive @ 2.960 (0.360- 4.170) test finding [address] SMILEY mIU/L (607)- - Hemoglobin A1c 01/21/2019 [facility] Hemoglobin A1c @ 5.4 % (4.0-6.0) 5 [address]MI[facility] (607)- - Est Average Glucose 108 mg/dL Laboratory test 01/21/2019 [facility] 25 Hydroxy Vit 67 ng/mL (31-100 ) 6 finding [address] SMILEY D @ (607)- - 1 NORMAL KIDNEY FUNCTION OR MILD [...] HIGH > 189 5 Performed using Siemens Mason immunoassay. Care must be taken when interpreting [...] METHOD. Procedures Date Code Description Status 08/25/2014 [id number] Mammogram Completed Medical Devices Description No Information Available Encounters Type Date Location Provider Dx Diagnosis Office Visit 04/28/2019 [facility] Emmanuel Merritt, E78.2 Mixed hyperlipidemia 9:15a N.P. I10 Essential (primary) hypertension M15.9 Polyosteoarthritis, [...] of right foot [facility] 03[facility]2019 [facility] Leonardo Witt I10 Essential [...] Cellulitis of face Office Visit 02/18/2019 9:30a [facility] Davidmartha E78.2 Mixed hyperlipidemia Leonardo Witt I10 Essential [...] Cellulitis of face Office Visit 01/21/2019 8:45a [facility] Davidmartha E78.2 Mixed hyperlipidemia Leonardo Witt I10 Essential [...] Otalgia, left ear Office Visit 12/22/2018 9:15a [facility] TimSujata rdz E78.2 Mixed hyperlipidemia Leonardo Witt I10 Essential [...] foot H92.02 Otalgia, left ear Office Visit 11/17/2018 9:00a [facility] Sujata E78.2 Mixed hyperlipidemia Leonardo Witt I10 Essential [...] left ear Assessments Date Code Description Provider 04/28/2019 E78.2 Mixed hyperlipidemia Emmanuel Merritt, N.P. 04/28/2019 I10 Essential (primary) hypertension Emmanuel Merritt N.P. 04/28/2019 M15.9 Polyosteoarthritis, unspecified Emmanuel Merritt N.P. 04/28/2019 R73.01 Impaired fasting glucose Emmanuel Merritt N.P. 04/28/2019 E55.9 Vitamin D deficiency, unspecified [...] Dumont M.D. 03/23/2019 E55.9 Vitamin D deficiency, unspecified Sujata Dumont M.D. 03/23/2019 G56.00 Carpal tunnel syndrome, unspecified upper Sujata Dumont M.D. limb 03/23/2019 G47.00 Insomnia, unspecified Sujata Dumont M.D. 03/23/2019 F41.9 Anxiety disorder, unspecified Sujata [...] M.D. 01/21/2019 M25.521 Pain in right elbow TimSujata westfall M.D. 01/21/2019 M25.562 Pain in left knee [...] M.D. 12/22/2018 E55.9 Vitamin D deficiency, unspecified Sujata Dumont M.D. 12/22/2018 G56.00 Carpal tunnel syndrome, unspecified upper Sujata Dumont M.D. limb 12/22/2018 G47.00 Insomnia, unspecified Sujata Dumont M.D. 12/22/2018 F41.9 Anxiety disorder, unspecified Sujata Dumont M.D. 12/22/2018 M25.521 Pain in right elbow Sujata Dumont M.D. 12/22/2018 M25.562 Pain in left knee Sujata Dumont M.D. 12/22/2018 M79.606 Pain in leg, unspecified TimSujata westfall M.D. 12/22/2018 A69.20 Lyme disease, unspecified Sujata Dumont M.D. 12/22/2018 M25.542 Pain in joints of left hand Sujata Dumont M.D. 12/22/2018 R53.83 Other fatigue Sujata Dumont M.D. 12/22/2018 R51 Headache TimSujata M.D. 12/22/2018 M25.571 Pain in right ankle and joints of right foot Sujata Dumont M.D. 12/22/2018 H92.02 Otalgia, left ear Sujata Dumont M.D. 12/21/2018 E78.2 Mixed hyperlipidemia Emmanuel Merritt, N.P. 12/21/2018 I10 Essential (primary) hypertension Emmanuel Merritt, N.P. 12/21/2018 M15.9 Polyosteoarthritis, unspecified Emmanuel Merritt, N.P. 12/21/2018 R73.01 Impaired fasting glucose Emmanuel Merritt, N.P. 12/21/2018 E55.9 Vitamin D deficiency, unspecified Emmanuel Merritt, N.P. 12/21/2018 G56.00 Carpal tunnel syndrome, unspecified upper Emmanuel Merritt, N.P. limb 12/21/2018 G47.00 Insomnia, unspecified Emmanuel Merritt, N.P. 12/21/2018 F41.9 Anxiety disorder, unspecified Emmanuel Merritt, N.P. 12/21/2018 M25.521 Pain in right elbow Emmanuel Merritt, N.P. 12/21/2018 M25.562 Pain in left knee Emmanuel Merritt N.P. 12/21/2018 M79.606 Pain in leg, unspecified Emmanuel Merritt, N.P. 12/21/2018 A69.20 Lyme disease, unspecified Emmanuel Merritt, N.P. 12/21/2018 M25.542 Pain in joints of left hand Emmanuel Merritt N.P. 12/21/2018 R53.83 Other fatigue Emmanuel Merritt N.P. 12/21/2018 R51 Headache Emmanuel Merritt, N.P. 12/21/2018 M25.571 Pain in right ankle and joints of right foot Emmanuel Merritt, N.P. 12/21/2018 H92.02 Otalgia, left ear Emmanuel Merritt, N.P. 11/17/2018 E78.2 Mixed hyperlipidemia Sujata Dumont M.D. 11/17/2018 I10 Essential (primary) hypertension Sujata Dumont M.D. 11/17/2018 M15.9 Polyosteoarthritis, unspecified Sujata Dumont M.D. 11/17/2018 R73.01 Impaired fasting glucose Sujata Dumont M.D. 11/17/2018 E55.9 Vitamin D deficiency, unspecified Sujata Dumont M.D. 11/17/2018 G56.00 Carpal tunnel syndrome, unspecified upper Sujata Dumont M.D. limb 11/17/2018 G47.00 Insomnia, unspecified Sujata Dumont M.D. 11/17/2018 F41.9 Anxiety disorder, unspecified Sujata Dumont M.D. 11/17/2018 M25.521 Pain in right elbow Sujata Dumont M.D. 11/17/2018 M25.562 Pain in left knee Sujata Dumont M.D. 11/17/2018 M79.606 Pain in leg, unspecified Sujata Dumont M.D. 11/17/2018 A69.20 Lyme disease, unspecified Sujata Dumont M.D. 11/17/2018 M25.542 Pain in joints of left hand Sujata Dumont M.D. 11/17/2018 R53.83 Other fatigue Sujata Dumont M.D. 11/17/2018 R51 Headache Sujata Dumont M.D. 11/17/2018 M25.571 Pain in right ankle and joints of right foot Sujata Dumont M.D. 11/17/2018 H92.02 Otalgia, left ear Sujata Dumont M.D. Plan of Treatment Future Appointment(s):05/28/2019 9:30 am - Emmanuel Merritt N.P. at [facility] [id number]/28/2019 - Emmanuel Merritt N.P.E78.2 Mixed hyperlipidemiaComments:DIET REVIEWED CONTINUE DIETWT LOSSF/U LAB FBWI10 Essential (primary) hypertensionComments:CHECK BP TIW ( PRN)F/U LABDIET AND FLUID COUNSELING LOW SODIUM DIETWT LOSSM15.9 Polyosteoarthritis, unspecifiedComments:EXERCISE/HEAT/ MESSAGETYLENOL OR MOTRIN PRNAVOID HEAVY LIFTINGWT LOSS DUR MBJVBLNJ89.01 Impaired fasting glucoseComments:F/U HGAICFS QAC AN HS PRNLOW GLUCOSE DIETE55.9 Vitamin D deficiency, unspecifiedComments:INCREASE EXPOSURE TO SUNREVIEW OF DIETG56.00 Carpal tunnel syndrome, unspecified upper limbG47.00 Insomnia, unspecifiedComments:COUNCELLING AND REASSURANCE RELAXATION TECHNIQUES DISCUSSED COUNSELED RE: STRESSORS IN LIFE TYLENOLPM OR MOTRIN PM PRN DUR XAXBUJWK50.9 Anxiety disorder, unspecifiedComments:COUNCELLING AND REASSURANCE RELAXATION TECHNIQUES DISCUSSEDCOUNSELED RE: STRESSORS IN LIFE AVOID ALLENERGY/HIGH CAFFEINE DRINKS DUR IIUKUKKU91.521 Pain in right elbowComments:EXERCISE/HEAT/ MESSAGE TYLENOL OR MOTRIN PRNAVOID HEAVY LIFTING ROBIN WRAP PRNELEVATE PRN DUR BJERDZVE62.562 Pain in left kneeComments:EXERCISE/HEAT /MESSAGEAVOID HEAVY LIFTING WT LOSSTYLENOL OR MOTRIN PRN DUR LRYSDCRI34.606 Pain in leg, unspecifiedComments:TYLENOL OR MOTRIN PRN EXERCISE/HEAT/MESSAGE DUR XQCTBOAB27.20 Lyme disease, unspecifiedComments:STABLE AND ASYMPTOMATIC KYDROKGT09.542 Pain in joints of left handComments:TYLENOL OR MOTRIN PRN EXERCISE/HEAT/FQNSHJQP45.83 Other fatigueComments:INCRFEASE PO FLUIDCOUNCELLING AND REASSURANCE RESTR51 HeadacheComments:TYLENOL OR MOTRIN PRNM25.571 Pain in right ankle and joints of right footComments:EXERCISE/HEAT/MESSAGETYLENOL OR MOTRIN PRNACE WRAP PRN USE SHOES INSERTS/ CUSHION Functional Status Functional Condition Comment Date Status Glasses Active Bifocal glasses Active Mental Status Description No Information Available Referrals Description No Information Available
[2019-06-17] MEDS ORDERED: NS 0.9% 1000 ML** 1,000 ML IV SCH (22:45)
[2019-06-17 23:24] LABS: Urine Appearance Clear; Urine Bacteria Absent (Absent); Urine Bilirubin Negative (Negative); Urine Blood 1+ (Negative); Urine Color Straw; Urine Glucose Negative (Negative); Urine Ketones Negative (Negative); Urine Nitrite Negative (Negative); Urine Protein Negative (Negative); Urine Red Blood Cell Trace(0-2/hpf) (Absent); Urine Specific Gravity 1.031 (1.010-1.030); Urine Squamous Epithelial Cell Present (Absent); Urine Urobilinogen Negative (Negative); Urine White Blood Cell Absent (Absent)
--- NOTE | 2019-06-18 00:50 | HP ---
CC: Dr. Sujata Dumont* HISTORY AND PHYSICAL: DATE OF ADMISSION: 06/17/19 PRIMARY CARE PHYSICIAN: Dr. Sujata Dumont. CHIEF COMPLAINT: Unsteady gait, felt as if she was leaning towards her left. HISTORY OF PRESENT ILLNESS: This is a 58-year-old female with past medical history of arthritis and mild asthma and no other history of hypertension, diabetes, or heart attack or stroke, was in her usual state of health up until 7 p.m. when she was at work at the [employer] and she felt that she was having unsteady gait and felt like she was leaning towards the left, so she was sent to the ER for further evaluation. A code tg was called and the patient was evaluated by Joyce teleneurologist, who recommended admission as all her symptoms had resolved by the time she was evaluated. The patient otherwise offers no chest pain, no shortness of breath, no headache, no vision changes. No abdominal pain, nausea, vomiting or diarrhea. No other numbness, tingling anywhere else on the body and no weakness. She did state that she was drinking coca-cola today rather than regular water. PAST MEDICAL HISTORY: As mentioned, arthritis and some mild asthma. PAST SURGICAL HISTORY: She has had two , a partial hysterectomy, cholecystectomy, a cyst excision from the right shoulder, and bilateral carpal tunnel release surgeries. HOME MEDICATIONS: The patient is currently on: 1. Tramadol as needed for pain. 2. Vitamin D 4000 units every morning. 3. ProAir as needed, which she has not used in over 2 years. 4. Mobic for pain twice a day. ALLERGIES: No known drug allergies. FAMILY HISTORY: Significant for lupus and prostate cancer. SOCIAL HISTORY: She is currently employed by [employer]. Works a 7 to 11 shift. Denies any other smoking or illicit drug use. Reports occasionally taking alcohol. She lives by herself. However, her son moved into the house recently. She is otherwise full code and the son Karan would be her surrogate decision maker. REVIEW OF SYSTEMS: A 14-point review of systems did not reveal any information other than the ones in the HPI. PHYSICAL EXAMINATION GENERAL: The patient is awake, alert, and oriented. She does not appear to be in any acute distress. VITAL SIGNS: BP was noted to be 116/84, heart rate 68, respiratory rate 21, saturating 96% on room air, temperature recorded at 97.4. HEAD AND NECK: Atraumatic and normocephalic. Bilateral pupils are reactive. Oral mucosa was dry. NECK: Supple. No jugular venous distention. LUNGS: Clear to auscultation bilaterally. No wheezing, no rhonchi, or rales. HEART: S1, S2. Regular rate and rhythm. ABDOMEN: Soft, nontender, nondistended. EXTREMITIES: No cyanosis, clubbing or edema. DIAGNOSTIC STUDIES/LAB DATA: CBC was unremarkable. Coagulation profile unremarkable. Comprehensive metabolic panel showed elevated BUN at 25, creatinine elevated at 1.18. Random glucose was noted to be 107. LFTs were within normal limits. LDL was noted to be elevated at 116. EKG showed minimal ST segment depression in the anterolateral leads when compared to her older EKG from 2013. This was still present back then and the overall waveform is essentially unchanged. Heat rate was noted to be 68. A portable chest x-ray was noted to be normal, but official read by Radiology is still pending. CT brain was showing no acute intracranial abnormality and CTA of the head and neck, no hemodynamically significant stenosis or large vessel acute occlusion was noted in both the CTA of the head and that of the neck. IMPRESSION: This is a 58-year-old female with no significant past medical history, here due to leaning towards the left, possible transient ischemic attack. ASSESSMENT: 1. Possible transient ischemic attack. The patient does have elevated lipid profile. We will start the patient on Lipitor along with daily aspirin. Consult Neurology in the morning. We will also get an echocardiogram with bubble study and neuro-checks q.4 hours. We will also get A1c to rule out any underlying diabetes and we will follow her on telemetry. Further treatment would be based on neurological recommendation. 2. Acute kidney injury. Her last normal creatinine was from September 2017, which was 0.91. We will start the patient on IV fluid hydration. This could be just the patient not having enough fluids. Another cause for the kidney injury could the patient taking meloxicam at home, which we will now hold at this point. 3. DVT prophylaxis with sequential compression device. 4. Code status. Full code with sonKaran being the surrogate decision maker. [id number]/[facility] #: [id number] [facility]
[2019-06-18 06:19] LABS: ABS Lymphocytes 2.1 10^3/ul (1.0-4.8); ABS Monocytes 0.5 10^3/ul (0-0.8); ABS Neutrophils 4.2 10^3/ul (1.5-7.7); Eosinophil % 0.6 %; Hematocrit 35 % (35-47); Hemoglobin 11.9 g/dL (12.0-16.0); Lymphocyte % 30.8 %; Mean Corpuscular HGB Conc 34 g/dL (31-36); Mean Corpuscular Hemoglobin 31 pg (27-31); Mean Corpuscular Volume 92 fL (80-97); Mean Platelet Volume 8.6 fL (7.4-10.4); Nucleated Red Blood Cells % 0.1; Platelet Count 368 10^3/uL (150-450); Red Blood Count 3.81 10^6 /uL (3.70-4.87); Red Cell Distribution Width 13 % (10-15); White Blood Count 6.9 10^3/uL (3.5-10.8)
[2019-06-18 06:34] LABS: BUN/Creatinine Ratio 23.8 (8-20); Calcium 8.7 mg/dL (8.6-10.3); EGFR African American 84.9 (>60); EGFR Non-African American 70.1 (>60); Potassium 3.7 mmol/L (3.5-5.0)
[2019-06-18 06:52] LABS: TSH (Thyroid Stimulating Horm) 2.78 mcIU/mL (0.34-5.60)
[2019-06-18] MEDS ORDERED: Aspirin EC TAB* 325 MG PO SCH (09:00)
--- NOTE | 2019-06-18 13:08 | ECHO ---
*[facility] System* [place] [address] Fax #: [phone] Transthoracic Echocardiogram Patient: Iram Morris : 1960 Study Date: 06/18/2019 Age: 58 Gender: F HR: 64 bpm Height: 57 in /144.8 cm BSA: 1.59 m^2 Weight: 149.7 lb /68 kg BMI: 32.5 kg/m^2 *Senior Animal Trainer: * Kasey Chance [facility] *Referring Physician: * Ernie Wong *Reading Physician: * Julio C Gutierrez MD Indications: TIA. History: Asthma. Conclusions Summary: - Left ventricle: The cavity size is normal. Wall thickness is normal. Systolic function is normal. The estimated ejection fraction is 55-60%. Wall motion is normal; there are no regional wall motion abnormalities. - Right ventricle: The cavity size is normal. Systolic function is normal. - Left atrium: The atrium is normal in size. - Atrial septum: Negative bubble study. - No significant valvular abnormalities noted. Recommendations: None prior for comparison at time of interpretation Study data: Transthoracic echocardiogram. Procedure: Transthoracic echocardiography was performed. Image quality was good. A bubble study was performed. Complete 2D, spectral Doppler, and color flow Doppler. Location: Bedside. Patient status: Inpatient. Patient room number: 431. Rhythm: Normal sinus rhythm. Findings Left ventricle: The cavity size is normal. Wall thickness is normal. Systolic function is normal. The estimated ejection fraction is 55-60%. Wall motion is normal; there are no regional wall motion abnormalities. There is no consistent Doppler evidence of clinically significant diastolic dysfunction. Right ventricle: The cavity size is normal. Systolic function is normal. Left atrium: The atrium is normal in size. Right atrium: The atrium is normal in size. Atrial septum: A PFO is not demonstrated by color Doppler or agitated saline contrast. Negative bubble study. Mitral valve: The leaflets are mildly thickened. There is no evidence of stenosis. There is trace regurgitation. Aortic valve: The valve is trileaflet. The leaflets are normal thickness. There is no evidence of stenosis. Tricuspid valve: The leaflets are normal thickness. There is no evidence of stenosis. There is trace regurgitation. Pulmonic valve: The leaflets are normal thickness. There is no evidence of stenosis. There is trace regurgitation. Aorta: The aortic root appears normal. The aortic arch appears normal. Pericardium: There is no significant pericardial effusion. Pulmonary arteries: The main pulmonary artery is normal-sized. Systolic pressure can not be accurately estimated. Systemic veins: Inferior vena cava: The vessel is normal in size. There is (>= 50%) respiratory change in the IVC dimension. Measurements Left ventricle Value Ref Aortic valve Value Ref SANDRA, LAX 4.2 cm 3.8 - 5.2 Stefany diam, ED 1.6 cm ---- ESD, LAX 2.6 cm 2.2 - 3.5 Peak v, S 1.45 m/sec ---- FS, LAX 39 % 27 - 45 VTI, S 29.9 cm ---- PW, ED, LAX 0.7 cm 0.6 - 0.9 Mean grad, S 4.0 mm Hg ---- EF 70 % 54 - 74 Peak grad, S 8.0 mm Hg ---- E', lat stefany, TDI (L) 9.5 cm/sec >=10.0 E/e', lat stefany, 6 Mitral valve Value Ref TDI Peak E 0.61 m/sec ---- E', med stefany, TDI 7.1 cm/sec >=7.0 Peak A 0.69 m/sec ---- E/e', med stefany, 9 Decel time 225 ms ---- TDI Peak E/A ratio 0.9 ---- E', avg, TDI 8.3 cm/sec E/e', avg, TDI 7 <=14 Pulmonic valve Value Ref Peak v, S 0.96 m/sec ---- LVOT Value Ref Peak grad, S 4.0 mm Hg ---- Peak umer, S 1.31 m/sec Peak grad, S 7 mm Hg Aortic root Value Ref Mean grad, S 4 mm Hg Root diam 2.6 cm <3.8 Ventricular septum Value Ref Ascending aorta Value Ref IVS, ED (H) 1.1 cm 0.6 - 0.9 AAo AP diam, S 2.7 cm ---- Right ventricle Value Ref Aortic arch Value Ref SANDRA, LAX 3.3 cm Arch diam 2.6 cm ---- Left atrium Value Ref Decending aorta Value Ref AP dim, ES 3.80 cm 2.70 - Adolfo peak umer 1.19 m/sec ---- 3.80 ML dim, A4C 3.0 cm Pulmonary veins Value Ref SI dim, A4C 3.9 cm Peak v, S 0.42 m/sec ---- Vol/bsa, ES, A/L 29 ml/m^2 16 - 34 Peak v, D 0.33 m/sec ---- Peak S/D ratio 1.3 ---- Right atrium Value Ref A rev duration 88 ms ---- SI dim, ES 3.5 cm 3.4 - 5.3 ML dim, ES, A4C (L) 2.4 cm 2.6 - 4.4 Estimated RAP 8 mm Hg Legend: (L) and (H) dominick values outside specified reference range. Prepared and electronically signed by Julio C Gutierrez MD 06/18/2019 13:07
[2019-06-18 15:47] VITALS: BP 100/62
--- NOTE | 2019-06-18 18:14 | CONS ---
NEUROLOGY CONSULTATION: DATE OF CONSULT: 06/18/19 LOCATION: She is an inpatient in room 432. REFERRING PROVIDER: DAVE Martinez PRIMARY CARE PROVIDER: Dr. Dumont. CHIEF COMPLAINT: Lightheadedness, dizzy. HISTORY OF PRESENT ILLNESS: Iram Morris is a 58-year-old woman, who was at work yesterday evening when she felt somewhat dizzy. She did not feel that the room was spinning and she did not really fe el like she was going to pass out. She had just gotten up to do her rounds at the [employer] [employer] where she works. She decided to report it to a supervisor building maintenance who was there. She was brought into [facility] emergency room at that point. By the time she came in, it was resolved. She did not experience a ny sweats, nausea, but she did feel somewhat hot and flushed. There was no change in her vision. The re was no pain associated with it. The whole thing lasted perhaps 30 to 45 minutes. A code mas was called and teleneurology consultation recommended admission. She was felt to be asymptomatic with a normal teleneurology evaluation. There is no history of faints, seizures, or significant head trauma. There is no history of transien t ischemic attacks or strokes. MEDICATIONS: At home consist of: 1. Vitamin D. 2. Mobic b.i.d. 3. Tramadol p.r.n. pain. SOCIAL HISTORY: She does not smoke. She drinks alcohol rarely. She lives at home with her son. REVIEW OF SYSTEMS: Notable for having a Coca-Cola yesterday which is something she does not normally do. She had been eating her meals as she usually does. She is not sure if she had much water to dr carmen. She has not been ill recently. No fevers or infections. No change in weight. She has not had any recent infections, falls, or change in diet. No bowel or bladder problems. No s hortness of breath or chest pain. PHYSICAL EXAM: She is well nourished and well hydrated. Temperature is 97.6, blood pressure 130/62, heart rate 63 and regular. Respiratory rate is 20 and oxygen saturation is 99% on room air. Heart is in a regular rate and rhythm without murmurs. Lungs are clear bilaterally. Carotid pulses are present and there are no cervical bruits. Oral mucosa is moist and atraumatic. Head is atraumat ic. Neck is supple. Neurological Exam: Pupils, fundi, and eye movements are normal. There is no nystagmus. Visual fiel ds are full to confrontation. Facial musculature and facial sensation are intact and symmetric. Pal ate and tongue appear normal and there is no dysarthria. Neck strength is intact. Hearing is intact bilaterally. Motor exam reveals normal muscle tone and strength proximally and distally in the upper and lower ext remities. There is no drift of any limb. There is no rest, sustention, or action tremor. Finger taps are normal in the hands. Xrya-[id number] m aneuver is normal bilaterally. Sensory exam is intact to pin, light touch, and vibration in all extremities. Reflexes are intact and symmetric including ankles. Plantar responses are flexor bilaterally. I did not attempt to ambulate her. She is alert and oriented and a good detailed historian. Memory is intact and language is fluent. S he has adequate attention, concentration, and fund of knowledge. DIAGNOSTIC STUDIES/LAB DATA: Includes a normal CBC on admission and today, her chemistry profile was notable for elevated creatinine last night at 1.18 which came down to 0.84 this morning. Her BUN wa s 25 when she came in yesterday and is down to 20. Her glucose was 107 when she presented yesterday and the rest of the chemistry profile was unremarkable. Her cholesterol yesterday at presentation wa s 185, LDL 116. Her TSH today is normal at 2.78. Urinalysis yesterday at presentation was notable for an elevated urine specific gravity at 1.031. Ot herwise, it is a normal urinalysis. INR and PTT are normal yesterday. Laboratory data includes a transthoracic echocardiogram interpreted as normal. She had a CT scan of the brain also interpreted as normal. I reviewed the images and I agree. She had a CT angiogram of the neck and brain when she presented yesterday interpreted as normal CT an giogram of the brain and neck. MRI of the brain is pending. Transthoracic echocardiogram was unremarkable. IMPRESSION AND PLAN: Impression is that of some nonspecific dizziness. She was a little bit dehydra jc on her urinalysis and blood work and so that may have been the etiology of her symptoms. She has an MRI pending and if that is normal, I think she can be discharged home on her usual medications. Certainly, if there is evidence of a cerebrovascular event, then I will need to reevaluate and consid er whether or not she needs to be on statin and antiplatelet therapy. I will follow her along until her MRI is complete and depending upon the results. [id number]/[facility] #: [id number]
[2019-06-18] MEDS ORDERED: Atorvastatin* 40 MG TAB PO SCH (21:00)
--- NOTE | 2019-06-18 22:51 | EEG ---
ELECTROENCEPHALOGRAPHY: DATE OF STUDY: 06/18/19 REFERRING PHYSICIAN: DAVE Martinez LOCATION: She is an inpatient in room 432. CLINICAL PROBLEM: Episode of feeling dizzy the night before this recording. MEDICATIONS: Only medications are: 1. Aspirin. 2. Atorvastatin. REPORT: This 19-channel EEG is remarkable for background activity consisting of fairly abundant beta -activity as well as some muscle artifact. There is a low abundance alpha rhythm in the occipital de rivations at 10 cycles per second which is symmetric. Activation procedures are not attempted. The patient may drowse with attenuation of background alpha rhythms but does not fall asleep. Activation procedures are not attempted. There are no clinical events. There are no focal, lateralized, or ep ileptiform abnormalities. CLINICAL IMPRESSION: Normal awake EEG. [id number]/[facility] #: [id number]
--- NOTE | 2019-06-18 23:26 | DS ---
CC: Dr. Sujata Dumont * DISCHARGE SUMMARY: DATE OF ADMISSION: 06/17/19 DATE OF DISCHARGE: 06/18/19 PRIMARY CARE PROVIDER: Dr. Sujata Dumont. ATTENDING PHYSICIAN: Nav Nam M.D. * (dictated by DAVE Martinez). DISCHARGE DIAGNOSES: 1. Nonspecific dizziness, suspected dehydration. 2. Hyperlipidemia. 3. Acute kidney injury. SECONDARY DIAGNOSES: 1. Mild asthma. 2. Arthritis. STUDIES WHILE IN THE HOSPITAL: 1. CT brain without contrast, impression: No acute intracranial abnormality. 2. Chest x-ray, impression: No evidence for active cardiopulmonary disease. 3. CTA head and neck, impression: No hemodynamically significant stenosis or large vessel occlusion. No stenosis or dissection in the neck. 4. Transthoracic echocardiogram, summary: LV cavity size normal, wall thickness normal, systolic function normal, estimated EF 55% to 60%, wall motion normal. No regional wall motion abnormalities. RV cavity size normal, systolic function normal. Left atrium normal in size. Atrial septum negative. Bubble study, no significant valvular abnormalities. 5. MRI brain without contrast, impression: No evidence for acute intracranial abnormalities. Findings consistent with Chiari 1 malformation. DISCHARGE MEDICATIONS: Home medications: 1. Albuterol inhaler 1 to 2 puff inhalation q.4 hours p.r.n. shortness of breath. 2. Cholecalciferol 4000 units p.o. daily. 3. Meloxicam 7.5 mg p.o. b.i.d. with meals. 4. Tramadol 100 mg p.o. in the a.m., 50 mg p.o. at 1200. New home medications: 1. Atorvastatin 40 mg p.o. at bedtime. HISTORY OF PRESENT ILLNESS/HOSPITAL COURSE: Ms. Morris is a 58-year-old female with a past medical history of mild asthma, arthritis, who presented to the ER on 06/17/19 with complaints of unsteady gait, listing to the left, and dizziness. For full and complete details, please see the history and physical dictated by Ernie Wong MD, but in short, the patient presents with these symptoms. She notes that she stood up and felt "off-kilter." She denied spinning and dizziness, but felt as if the room was tilted to the left. She notes that this lasted approximately 3 hours total. She laid down at one point which helped decrease symptoms and then symptoms resolved approximately 1 hour after she laid down. Since then, she has had no return of symptoms. She arrived at the ER. Workup included CT of the brain and CTA of the head and neck , both were unremarkable. Echocardiogram with bubble study was obtained and showed preserved ejection fraction, no wall motion abnormalities, no PFO. Hemoglobin A1c was 5.2. Lipid panel revealed an elevated LDL of 116, for which she was started on atorvastatin. MRI was ordered and revealed no acute intracranial abnormality. Neurology was consulted for further recommendations. They do not suspect TIA/CVA. The patient was suspected to be dehydrated as evidenced by a high specific gravity of urine as well as elevated BUN and creatinine, all of which resolved with 1 L fluid bolus. The patient was noted to have an acute kidney injury. This was suspected to be prerenal from dehydration and resolved with administration of IV fluids. She is stable for discharge. She has no complaints at this point in time. Upon arrival, she felt off-kilter and somewhat dizzy, but this resolved and has not returned. She has ambulated in the halls without difficulty. She denies headache, dizziness, lightheadedness, vision changes, difficulty with speech or swallowing, chest pain or discomfort, shortness of breath, cough, fever, chills , abdominal pain, nausea, vomiting diarrhea, constipation, myalgias, arthralgias , weakness in the limbs. Ms. Morris is stable for discharge. PHYSICAL EXAMINATION: Vital Signs: Temperature 97.7 oral, heart rate 72, respiratory rate 18, oxygen saturation 100% on room air, blood pressure 100/62. General: Ms. Morris is a well-developed, well-nourished, obese, middle age white female who is sitting up in bed. She appears to be in no acute distress. She is pleasant and cooperative. HEENT: PERRL. EOMI. Nonicteric sclerae. Hearing is grossly intact. Oral mucous membranes are moist. The tongue is at midline. There are no lesions. The oropharynx and palate elevate symmetrically. Pharynx is clear. Cardiovascular: Regular rate and rhythm with S1, S2 present without murmurs, rubs, clicks, or gallops. There is no JVD. Telemetry reveals normal sinus rhythm throughout stay. No peripheral edema. Abdomen: Obese, bowel sounds in all quadrants. Abdomen is soft, nontender to palpation. Musculoskeletal: Full range of motion without pain or deformities. Neuro: The patient is awake. She is alert and oriented x3 with cranial nerves grossly intact. She is able to move all of her extremities. She has a motor strength that is 5/5 bilaterally in upper and lower extremities. 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 Steady gait without impairment. DISCHARGE PLAN: Ms. Morris is stable for discharge to home. CONDITION: Good. DIET: Heart healthy. ACTIVITY: As tolerated. MEDICATIONS: Continue atorvastatin 40 mg p.o. daily. EDUCATION: 1. Follow up with primary care provider in 4 to 7 days. Discussed recent hospitalization, new medications, refill on atorvastatin. 2. Return to the ER or nearest hospital if you experience any return of symptoms, chest pain or discomfort, shortness of breath, dizziness, lightheadedness, loss of consciousness, high fevers, chills, night sweats, or any other worrisome signs or symptoms. This is a summarized report of a complex medical history and hospital stay. For further details, please see the entire medical record. TIME SPENT: Approximately 35 minutes was spent on this discharge, greater than half that time was spent [id number] with the patient discussing discharge plans and instructions. DAVE ERNANDEZ [id number]/[facility] #: [id number] [place]
== END 2019-06-18 18:00 | disposition home or self-care (01) | DRG 422 ==
LOC: ED 20:08 → MEDTELE 22:40
PROVIDERS: ADMIT Internal Medicine; ATTEND Internal Medicine
PROC: 4A00X4Z Measurement of Central Nervous Electrical Activity, External Approach (ICD-10-PCS; principal; 2019-06-18)
DX: E86.0 Dehydration (principal); N17.9 Acute kidney failure, unspecified; J45.909 Unspecified asthma, uncomplicated; M16.0 Bilateral primary osteoarthritis of hip; M17.0 Bilateral primary osteoarthritis of knee; E78.5 Hyperlipidemia, unspecified; E66.9 Obesity, unspecified; Z72.89 Other problems related to lifestyle; Z68.34 Body mass index [BMI] 34.0-34.9, adult
CPT/HCPCS: 36415; 70450; 70496; 70498; 70551; 71045; 80048; 80053; 80061; 81003; 81015; 83036; 83605; 84443; 84484; 85025; 85610; 85730; 93005; 93306; 95816; 99284; A9270-GY; Q9967